=== PATIENT | female | born 1955 | race Caucasian/White ===

== ENCOUNTER 2016-12-27 09:16 | Day surgery (SDC) | payer BC, OTHER ==
[~2016-12-27] VITALS: Ht 152.4 cm; Wt 76.5 kg
[2016-12-27 09:51] VITALS: BP 136/94; PULSE 93; TEMP 97.3
[2016-12-27] MEDS ORDERED: SYNTHROID0.075 MG/T PO (10:00)
[2016-12-27] MEDS ORDERED: ALEVE 220MG220 MG PO (10:01)
[2016-12-27] MEDS ORDERED: COZAAR 50MG50 MG/TAB PO (10:02)
[2016-12-27] MEDS ORDERED: TRILIPIX 135MG PO (10:03)
[2016-12-27] MEDS ORDERED: FLOVENT DI50 MCG/Act IH (10:03)
[2016-12-27] MEDS ORDERED: ALAVERT10 M1 PO (10:04)
[2016-12-27] MEDS ORDERED: ANTIVERT 12.512.5 MG PO (10:05)
[2016-12-27] MEDS ORDERED: MOBIC15 MG PO (10:05)
[2016-12-27] MEDS ORDERED: PRAVACHOL 40MG40 MG PO (10:07)
[2016-12-27] MEDS ORDERED: TYLENOL 500MG500 MG PO (10:07)
[2016-12-27] MEDS ORDERED: VENTOLIN0.09 MG IH (10:08)
[2016-12-27] MEDS ORDERED: ZOLOFT 100MG100 MG PO (10:08)
[2016-12-27 10:47] VITALS: BP 125/85; PULSE 84; TEMP 97.5
[2016-12-27 11:32] VITALS: BP 129/92; PULSE 77
== END 2016-12-27 11:40 | disposition home or self-care (01) ==
LOC: SDCO 09:16
DX: Z12.11 Encounter for screening for malignant neoplasm of colon (principal); K57.30 Diverticulosis of large intestine without perforation or abscess without bleeding; E78.00 Pure hypercholesterolemia, unspecified; I10 Essential (primary) hypertension; J45.909 Unspecified asthma, uncomplicated; E03.9 Hypothyroidism, unspecified
CPT/HCPCS: OP; J2250; J2405; J3010; J7030